=== PATIENT | male | born 1965 | race Caucasian/White ===

== ENCOUNTER → 2023-06-08 13:32 | Outpatient (REF) | payer BC, SELFPAY | LOC: HWRAD 13:32 | PROVIDERS: ATTENDING PHYSICIAN Internal Medicine; FAMILY PHYSICIAN Family Medicine | DX: N20.0 Calculus of kidney (principal) | CPT/HCPCS: 76770 ==

== ENCOUNTER → 2024-08-17 10:22 | Outpatient (REF) | payer BC, SELFPAY | LOC: RCS 10:22 | PROVIDERS: ATTENDING PHYSICIAN Student in an Organized Health Care Education/Training Program; FAMILY PHYSICIAN Student in an Organized Health Care Education/Training Program | DX: R07.2 Precordial pain (principal) | CPT/HCPCS: 93017 ==